=== PATIENT | female | born 1985 ===

== ENCOUNTER 2024-03-24 17:35 | Emergency (ER) | payer MEDICAID ==
[~2024-03-24] VITALS: Ht 172.7 cm; Wt 106.0 kg
[2024-03-24 17:51] VITALS: O2SAT 98
[2024-03-24 19:31] LABS: BASOPHILS % 0.3 % (0.0-2.0); EOSINOPHILS % 0.8 % (0.0-5.0); HEMATOCRIT. 37.8 % (36.0-48.0); HEMOGLOBIN. 12.7 g/dL (12.0-16.0); LYMPHOCYTES % 17.2 % (20.0-50.0); MEAN CORPUSCULAR HGB CONC 33.7 g/dL (31.0-37.0); MEAN PLATELET VOLUME 7.4 fl (7.4-10.4); MONOCYTES % 5.2 % (2.0-8.0); NEUTROPHILS % 76.5 % (40.0-76.0); PLATELET 334 x1000/uL (130-400); RED BLOOD CELL COUNT 4.11 mill/uL (4.2-5.4); RED CELL DISTRIBUTION WIDTH 12.6 % (11.6-14.6); WHITE BLOOD COUNT 9.3 x1000/uL (4.5-11.0)
[2024-03-24 19:38] LABS: CARBON DIOXIDE 25 mEq/L (21-32); CHLORIDE 109 mEq/L (98-107); POTASSIUM 3.9 mEq/L (3.5-5.1); SODIUM 141 mEq/L (136-145)
[2024-03-24 19:44] LABS: CREATININE 0.7 mg/dL (0.6-1.0); GLUCOSE 105 mg/dL (70-105); UREA NITROGEN BLOOD 7 mg/dL (9-23)
[2024-03-24 19:46] LABS: TROPONIN I HIGH SENSITIVITY < 4 ng/L (3.0-34)
[2024-03-24] MEDS: LIDOCAINE HCL 1% 20ML VIAL INFIL ONE (19:47)
[2024-03-24] MEDS: CEFTRIAXONE SODIUM 500MG VIAL IM ONE (19:47)
[2024-03-24 20:06] LABS: CLARITY URINE CLOUDY (CLEAR); COLOR URINE YELLOW (YELLOW); GLUCOSE URINE NEGATIVE (NEGATIVE); KETONES URINE NEGATIVE (NEGATIVE); LEUKOCYTE ESTERASE URINE NEGATIVE (NEGATIVE); NITRITE URINE NEGATIVE (NEGATIVE); OCCULT BLOOD URINE NEGATIVE (NEGATIVE); PROTEIN URINE NEGATIVE (NEGATIVE); SPECIFIC GRAVITY URINE 1.022 (1.005-1.030)
[2024-03-24 20:17] LABS: HCG SCREEN NEGATIVE
[2024-03-24 20:29] LABS: BACTERIA URINE FEW; RBC URINE 0-2 /hpf (0-2); SQUAMOUS EPITHELIAL CELL URINE FEW /lpf (RARE/1+); WBC URINE 0-2 /hpf (0-2); YEAST URINE NONE SEEN
[2024-03-24] MEDS: PENICILLIN G BENZATHINE 2,400,000 UNITS/4ML SYR IM ONE (23:47)
[2024-03-25] MEDS ORDERED: DOXY100T2 MT (00:03)
[2024-03-25 00:18] VITALS: BP 138/92; PULSE 74; RESP 18; TEMP 36.6; O2SAT 100
[2024-03-25] MEDS: PENICILLIN G BENZATHINE 2,400,000 UNITS/4ML SYR IM NR (00:23)
== END 2024-03-25 00:25 | disposition home or self-care (01) ==
LOC: ER 17:35
DX: R53.1 Weakness (principal); Z20.2 Contact with and (suspected) exposure to infections with a predominantly sexual mode of transmission; Z20.822 Contact with and (suspected) exposure to COVID-19
CPT/HCPCS: 99284; 87426; 86593; 86592; 80048; 81003; 81025; 84703; 85025; 84484; 87804 ×2; 36415; 93005; 96372; 87591; J0696; J3490; J0561